=== PATIENT | female | born 1995 | race Caucasian/White ===

== ENCOUNTER 2018-05-31 21:18 | Emergency (ER) | payer MEDICAID ==
[2018-05-31 21:26] VITALS: BP 123/75
--- NOTE | 2018-05-31 22:11 | EDPHY ---
H & P Stated Complaint: COUGH,SORE THROAT X 1 WK Time Seen by Provider: 05/31/18 21:39 HPI/ROS: HPI: This is a 23-year-old female who presents with Chief Complaint: COUGH,SORE THROAT X 1 WK Location: Chest, throat Quality: Cough, soreness Duration: 1 week Signs and Symptoms: no fever, no nausea, no vomiting, no diarrhea, no urinary symptoms, no chest pain, no shortness of breath, no wheezing, + nonproductive cough, + sore throat, no neck stiffness, no joint pain, no swollen glands, no ear pain, no rash Timing: Gradual onset, worsening Severity: [id number] Context: Patient is generally healthy, no history of lung disease, presents with 7 day history of nonproductive cough and sore throat. She denies any fever , swollen glands, neck stiffness, rash, shortness of breath, wheezing. She has no recent long distance travel. Nonsmoker. Modifying Factors: [id number] cold medicines with no relief Comment: ROS: A comprehensive 10 system review of systems is otherwise negative aside from elements mentioned in the history of present illness. MEDICAL/SURGICAL/SOCIAL HISTORY: Medical history: Depression. LMP 1-7 days ago. Surgical history: Denies Social history: Employed. Nonsmoker. Family history noncontributory. CONSTITUTIONAL: Well-appearing, talkative, adult white female, awake and alert , no obvious distress HEENT: Atraumatic and normocephalic, PERRL, EOMI. Nares patent; no rhinorrhea; no nasal mucosal edema. Tympanic membranes clear. Oropharynx clear, tonsils 1 + with no erythema, no exudate, uvula midline and moist pink mucosa. Airway patent. No lymphadenopathy. No meningismus. Cardiovascular: Normal S1/S2, regular rate, regular rhythm, without murmur rub or gallop. PULMONARY/CHEST: Symmetrical and nontender. Clear to auscultation bilaterally. Good air movement. No accessory muscle usage. Dry cough noted. ABDOMEN: Soft, nondistended, nontender, no rebound, no guarding, no peritoneal signs, no masses or organomegaly. No CVAT. EXTREMITIES: 2/2 pulses, strength 5/5, no deformities, no clubbing, no cyanosis or edema. NEUROLOGICAL: no focal neuro deficits. GCS 15. SKIN: Warm and dry, no erythema. no rash. Good capillary refill. Source: Patient Exam Limitations: No limitations - Personal History LMP (Females 10-55): 1-7 Days Ago Current Tetanus Diphtheria and Acellular Pertussis (TDAP): Yes - Medical/Surgical History Hx Asthma: No Hx Chronic Respiratory Disease: No Hx Diabetes: No Hx Cardiac Disease: No Hx Renal Disease: No Hx Cirrhosis: No Hx Alcoholism: No Hx HIV/AIDS: No Hx Splenectomy or Spleen Trauma: No Other PMH: DENIES - Social History Smoking Status: Never smoked Constitutional: Initial Vital Signs Temperature (C) 36.7 C 05/31/18 21:24 Heart Rate 70 05/31/18 21:24 Respiratory Rate 16 05/31/18 21:24 Blood Pressure 123/75 H 05/31/18 21:24 O2 Sat (%) 96 05/31/18 21:24 O2 Delivery Mode Room Air Allergies/Adverse Reactions: Penicillins Allergy (Verified 05/31/18 21:23) Home Medications: Medication Instructions Recorded Albuterol Sulfate [Proair Hfa] 1 - 2 puffs IH Q4 PRN #1 hfa.aer.ad 05/31/18 Benzonatate [Tessalon Pearles (RX)] 100 mg PO Q6 PRN #15 cap 05/31/18 Paxil 05/31/18 predniSONE [predniSONE TAPER] 10 mg PO DAILY 6 Days ea 05/31/18 Medical Decision Making - Diagnostics Imaging Results: Imaging Impressions Chest X-Ray 05/31/18 21:39 Impression: Features consistent with perihilar bronchitis/RAD. There is no focal infiltrate. ED Course/Re-evaluation: Vital signs reviewed and stable upon arrival. No signs of hypoxia, respiratory distress. Rapid strep and chest x-ray ordered 2209: Chest x-ray my read shows no opacity, no effusion, no widened mediastinum , no pneumothorax. Radiology reads findings consistent with reactive airway disease/viral bronchitis. Rapid strep is negative. Prophylactic antibiotics not indicated based on low risk modified Centor score. Given albuterol nebulizer and p.o. Decadron 10 mg Will treat patient as viral bronchitis, viral pharyngitis. This patient was seen under the supervision of my primary supervising physician. I evaluated care for this patient independently. Differential Diagnosis: Differential diagnosis includes but is not limited to strep pharyngitis, pneumonia, bronchitis, viral syndrome, upper respiratory infection. - Data Points Laboratory Results: 05/31/18 05/31/18 Unknown 21:49 Group A Strep Screen NEGATIVE (NEGATIVE) Group A Strep DNA Pending Medications Given: Discontinued Medications Albuterol (Proventil Neb) 3 ml IH EDNOW ONE Stop: 05/31/18 22:16 Last Admin: 05/31/18 22:20 Dose: 3 ml Dexamethasone (Decadron) 10 mg PO EDNOW ONE Stop: 05/31/18 22:16 Last Admin: 05/31/18 22:19 Dose: 10 mg Departure - Departure Disposition: Home, Routine, Self-Care Clinical Impression: Viral bronchitis, Viral pharyngitis Condition: Good Instructions: Pharyngitis (ED), Acute Bronchitis (ED) Additional Instructions: Rest as much as possible until you are feeling better. Consume a minimum of 8-10 glasses of water or electrolyte fluid replacement drinks that include Gatorade, Powerade, Pedialyte. Take Tessalon Perles every 6 hr as needed for cough. Use albuterol inhaler every 4-6 hours as needed for shortness of breath, wheezing. Take prednisone taper as directed. Referrals: Armida Lyman MD [Medical Doctor] - 5-7 days, if not improved Prescriptions: Albuterol Sulfate [Proair Hfa] 1 - 2 puffs IH Q4 PRN #1 hfa.aer.ad PRN Reason: Short Of Breath/Dyspnea Benzonatate [Tessalon Pearles (RX)] 100 mg PO Q6 PRN #15 cap PRN Reason: Cough, Moderate predniSONE [predniSONE TAPER] 10 mg PO DAILY 6 Days ea
[2018-05-31] MEDS ORDERED: DEXAMETHASONE 4 MG TAB PO ONE (22:15)
[2018-05-31] MEDS ORDERED: ALBUTEROL 3 ML DEYVIAL IH ONE (22:15)
== END 2018-05-31 22:45 | disposition home or self-care (01) ==
DX: J20.8 Acute bronchitis due to other specified organisms (principal); J02.8 Acute pharyngitis due to other specified organisms; Z88.0 Allergy status to penicillin
CPT/HCPCS: J7613

== ENCOUNTER 2018-08-25 00:30 | Emergency (ER) | payer MEDICAID ==
--- NOTE | 2018-08-25 00:38 | EDPHY ---
H & P Stated Complaint: UTI symptoms Time Seen by Provider: 08/25/18 00:38 HPI/ROS: HPI CHIEF COMPLAINT: "I think I have a urinary tract infection". HISTORY OF PRESENT ILLNESS: This patient is a 23-year-old female she is otherwise healthy, presents emergency room with dysuria, and urinary frequency x3 days. Denies any fever, denies back pain, denies abdominal pain or vomiting. She believes she may have a urinary tract infection. Additionally she is requesting gonorrhea chlamydia testing. Denies any significant vaginal discharge. Denies pelvic pain. Patient distally reports that she is worried that she may have acquired STI given that she had unprotected intercourse in last 2 weeks. She denies any significant pelvic pain or abdominal pain denies any significant vaginal discharge. Her main complaint is dysuria and urinary frequency. Denies fever back pain or joint pain. Past Medical History: Denies significant medical history except for OCD. 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 Occasional alcohol use, admits to cocaine recently. Family History: Noncontributory ROS REVIEW OF SYSTEMS: 10 Systems were reviewed and negative with the exception of the elements mentioned in the history of present illness. Exam Constitutional appears well nontoxic no acute distress, triage nursing summary reviewed, vital signs reviewed, awake/alert. Eyes normal conjunctivae and sclera, EOMI, PERRLA. HENT normal inspection, atraumatic, moist mucus membranes, no epistaxis, neck supple/ no meningismus, no raccoon eyes. Respiratory clear to auscultation bilaterally, normal breath sounds, no respiratory distress, no wheezing. Cardiovascular rate normal, regular rhythm, no murmur, no edema, distal pulses normal. Gastrointestinal soft, non-tender, no rebound, no guarding, normal bowel sounds, no distension, no pulsatile mass. Genitourinary no CVA tenderness. Musculoskeletal no midline vertebral tenderness, full range of motion, no calf swelling, no tenderness of extremities, no meningismus, good pulses, neurovascularly intact. Skin pink, warm, & dry, no rash, skin atraumatic. Neurologic awake, alert and oriented x 3, AAOx3, moves all 4 extremities equally, motor intact, sensory intact, CN II-XII intact, normal cerebellar, normal vision, normal speech. Psychiatric normal mood/affect. Heme/Lymph/Immune no lymphadenopathy. Differential Diagnosis: Includes but is not limited to in a particular order UTI, cystitis, pyelonephritis, gonorrhea chlamydia Medical Decision Making: Plan for this patient check urinalysis, dirty catch urine. Urine test and re-evaluate. Re-evaluation: 0124AM: Patient's urinalysis and urine test are negative I discussed the results with the patient. Patient denies any pelvic pain or vaginal discharge. Given that the patient is concerned that she may acquired STI, as she had unprotected intercourse recently she is concerned she may have an infection. I offered her to treat her empirically here in the emergency room with Rocephin and azithromycin. She would like this. We also discussed that she could wait and see her test results show however after risk versus benefit in going discussion she would like treatment. Will treat empirically. Plan for Rocephin and Zithromax. We discussed return precautions return emergency room if she develops abdominal pain, fever, pelvic pain, vaginal discharge, worsening urinary symptoms or not doing well. Long discussion with the patient she is concerned that she may have vaginal infection. Will perform pelvic exam, to rule out vaginal infection vaginitis. Impaired treatment for gonorrhea chlamydia with azithromycin and Rocephin. Pelvic Exam performed. Jocelyne RN at bedside as electrical service technician and present during pelvic exam. Pelvic exam was unremarkable no external lesions, no foul odor. Minimal white yellow discharge. No CMT. No adnexal fullness or mass no adnexal tenderness. No evidence of PID on exam. Wet prep swabs will be sent. Patient received azithromycin and Rocephin emperic treatment of gonorrhea chlamydia. Wet prep reviewed. Patient updated, agrees for discharge. Return precautions discussed. Source: Patient - Personal History LMP (Females 10-55): 8-14 Days Ago Current Tetanus/Diphtheria Vaccine: Yes Current Tetanus Diphtheria and Acellular Pertussis (TDAP): Yes - Medical/Surgical History Hx Asthma: No Hx Chronic Respiratory Disease: No Hx Diabetes: No Hx Cardiac Disease: No Hx Renal Disease: No Hx Cirrhosis: No Hx Alcoholism: No Hx HIV/AIDS: No Hx Splenectomy or Spleen Trauma: No Other PMH: OCD - Social History Smoking Status: Never smoked Constitutional: Initial Vital Signs Temperature (C) 36.9 C 08/25/18 00:33 Heart Rate 70 08/25/18 00:33 Respiratory Rate 16 08/25/18 00:33 Blood Pressure 116/73 05/26/19 00:33 O2 Sat (%) 99 08/25/18 00:33 O2 Delivery Mode Room Air Allergies/Adverse Reactions: Penicillins Allergy (Verified 08/25/18 00:33) Home Medications: Medication Instructions Recorded Paxil 05/31/18 Medical Decision Making - Data Points Laboratory Results: 08/25/18 08/25/18 08/25/18 02:15 00:42 00:42 Urine Color Urine Appearance Urine pH Ur Specific [place] Urine Protein Urine Ketones Urine Blood Urine Nitrate Urine Bilirubin Urine Urobilinogen Ur Leukocyte Esterase Urine Glucose Urine Test NEGATIVE Trichomonas (Wet Prep) NO CLUE CELLS SEEN N.gonorrhoeae RNA (TMA) Pending 08/25/18 00:42 Urine Color PALE YELLOW Urine Appearance CLEAR Urine pH 7.0 (5.0-7.5) Ur Specific [place] 1.003 (1.002-1.030) Urine Protein NEGATIVE (NEGATIVE) Urine Ketones NEGATIVE (NEGATIVE) Urine Blood NEGATIVE (NEGATIVE) Urine Nitrate NEGATIVE (NEGATIVE) Urine Bilirubin NEGATIVE (NEGATIVE) Urine Urobilinogen NEGATIVE EU EU (0.2-1.0) Ur Leukocyte Esterase NEGATIVE (NEGATIVE) Urine Glucose NEGATIVE (NEGATIVE) Urine Test Trichomonas (Wet Prep) N.gonorrhoeae RNA (TMA) Medications Given: Discontinued Medications Ceftriaxone Sodium (Rocephin Im Syringe) 250 mg IM EDNOW ONE PRN Reason: Protocol Stop: 08/25/18 01:27 Last Admin: 08/25/18 01:50 Dose: 250 mg Departure - Departure Disposition: Home, Routine, Self-Care Clinical Impression: STI (sexually transmitted infection) Condition: Good Instructions: Sexually Transmitted Diseases (ED), Condom Use (ED), Safe Sex (ED ) Additional Instructions: 1. Return to the emergency room if worsening symptoms. Referrals: NONE *PRIMARY CARE P,. [Primary Care Provider] - As per Instructions [facility],. [Clinic] - As per Instructions
[2018-08-25] MEDS ORDERED: AZITHROMYCIN 250 MG TAB PO ONE (01:26)
[2018-08-25] MEDS ORDERED: FLUCONAZOLE 150 MG TAB PO ONE (02:22)
[2018-08-25 04:07] VITALS: BP 135/65
== END 2018-08-25 03:33 | disposition home or self-care (01) ==
DX: A64 Unspecified sexually transmitted disease (principal)
CPT/HCPCS: J0696